=== PATIENT | female | born 1960 | race Two or more races ===

== ENCOUNTER 2024-07-29 07:49 | Outpatient (OUT) | payer BC, SELFPAY ==
--- OUTSIDE RECORDS SUMMARY | 2024-07-28 14:45 | XMS_ITS | Encounter Summary ---
Author Organization [facility] Address [facility] [id number] [address] [place] [address] Care Team Providers Care Skin Care Therapist Name Role Phone Yosi Lan MD Primary Care Provider Reason for Visit * Reason Comments Follow-up [facility] 04/10/2023 Coronary Artery Disease Palpitations Hypertension Shortness of Breath WITHOUT EXERTION Encounter Details Date Type Department Care Team (Late st Contact Info) Description 07/28/2024 2:45 PM EDT Office Visit [facility] [address] [place] [id number] Nora Henderson PA-C [address] [place] [address] Vee Dooley MD [address] [place] [address] Palpitations (Primary Dx); Essential hypertension Social History Tobacco Use Types Packs/Day Years Used Date Smoking Tobacco: Never Smokeless Tobacco: Never Alcohol Use Standard Drinks/Week Comments No 0 (1 standard drink = 0.6 oz pur e alcohol) Social Connection and Isolat ion Panel [NHANES] Answer Date Recorded In a typical week, how many times do you talk on the phone with family, friends, or neighbors? Three times a week 05/04/2021 How often do you get togethe r with friends or relatives? Once a week 05/04/2021 How often do you attend chur or muslim services? More than 4 times per year 05/04/2021 Do you belong to any clubs o r organizations such as scientologist groups, unions, fraternal or athletic groups, or school groups? Yes 05/04/2021 How often do you attend meet ings of the clubs or organizations you belong to? More than 4 times per year 05/04/2021 Are you , , di vorced, , never , or living with a partner? 05/04/2021 AUDIT-C Answer Date Recorded Q1: How often do you have a drink containing alcohol? Never 05/04/2021 Q2: How many drinks containi ng alcohol do you have on a typical day when you are drinking? Patient does not drink Q3: How often do you have si x or more drinks on one occasion? Never 05/04/2021 Overall Financial Resource Strain (CARDIA) Answe r Date Recorded How hard is it for you to pa y for the very basics like food, housing, medical care, and heating? Not very hard 05/04/2021 PHQ-2 Answer Date Recorded Total Score 0 06/03/2023 [facility] - Occupational Stress Questionnaire Answer Date Recorded Do you feel stress - tense, restless, nervous, or anxious, or unable to sleep at night because your mind is troubled all the time - these days? Not at all 05/04/2021 Exercise Vital Sign Answer Date Recorde d Days of Exercise per Week Not on file 2021 On average, how many minutes do you engage in exercise at this level? 20 min 05/04/2021 PRAPARE - Transportation Answer Date Re corded In the past 12 months, has l ack of transportation kept you from medical appointments or from getting medications? No 04/17 In the past 12 months, has l ack of transportation kept you from meetings, work, or from getting things needed for daily living? No 05/04/2021 Childcare Answer Date Recorded Do problems getting child ca re make it difficult for you to work or study? No 05/04/2021 Employment Answer Date Recorded Do you need help finding a [facility] career center and/or a training program? No 05/04/2021 Hunger Screening Answer Date Recorded Within the past 12 months we worried whether our food would run out before we got money to buy more. Never True 07/28/2024 Within the past 12 months th e food we bought just didn't last and we didn't have money to get more. Never True 07/28/2024 Purpose - Life Answer Date Recorded I have a purpose and direction in my life. Agree 05/04/2021 Education Answer Date Recorded What is the highest level of school you have completed or the highest degree you have received? Associate degree: academic program 05/04/2021 Comments No Sex and Gender Information Value Date Recorded Sex Assigned at Female 12/26/2020 2:29 PM EST Legal Sex Female 11:25 AM EDT Gender Identity Female 12/26/2020 2:29 PM EST Sexual Orientation Straight 12/26/2020 2: 29 PM EST documented as of this encounter Last Filed Vital Signs Vital Sign Reading Time Taken Comments Blood Pressure 134/70 07/28/2024 2:30 PM EDT Pulse 57 07/28/2024 2:30 PM EDT Temperature - - Respiratory Rate - - Oxygen Saturation 97% 07/28/2024 2:30 PM EDT Inhaled Oxygen Concentration - - Weight 75.3 kg (166 lb) 07/28/2024 2:30 PM EDT Height 162.6 cm (5' 4 ) 07/28/2024 2:30 PM EDT Body Mass Index 28.49 07/28/2024 2:30 PM EDT documented in this encounter Progress Notes * Vee Dooley MD - 07/28/2024 2:45 PM EDT Latasha Pettit Mona Date of visit: 07/28/2024 Date of : 1960 Age: 63 y.o. Patient Active Problem List Diagnosis Essential hypertension Pure hypercholesterolemia CAD (coronary artery disease) Hypothyroidism Mastocytosis Depression Allergies Allergen Reactions Codeine Penicillins Sulfa (Sulfonamide Antibiotics) Tetracyclines Current Outpatient Medications Medication Sig Dispense Refill AMBULATORY COMPOUNDED MEDICATION Patient to take one tablet daily 90 tablet 3 amLODIPine (NORVASC) 10 mg tablet TAKE 1 TABLET BY MOUTH EVERY MORNING 90 tablet 0 aspirin 81 mg chewable tablet Chew 1 tablet (81 mg total) and swallow in the morning. 90 tablet 2 atorvastatin (LIPITOR) 40 mg tablet TAKE 1 TABLET BY MOUTH EVERY MORNING 90 tablet 0 cetirizine (ZyrTEC) 10 mg tablet Take 1 tablet (10 mg total) by mouth in the morning. cholecalciferol, vitamin D3, 2,000 units tablet [id number] UNITS DAILY FLUoxetine (PROzac) 10 mg tablet Take 0.5 tablets (5 mg total) by mouth every morning. 135 tablet 0 glucosamine-chondroitin 500-400 mg tablet Take 1 tablet by mouth in the evening. ketotifen (ZADITOR) 0.025 % (0.035 %) ophthalmic solution ketotifen 0.025 % (0.035 %) eye drops INSTILL 1 DROP INTO AFFECTED EYE(S) BY OPHTHALMIC ROUTE 2 TIMES PER DAY ketotifen fumarate, bulk, 100 % powder [id number] 1,836-425-66-80 mg capsule Take 1,000 mg by mouth once. levothyroxine (SYNTHROID, LEVOTHROID) 125 MCG tablet Take 1 tablet (125 mcg total) by mouth in the morning. 90 tablet 3 montelukast (SINGULAIR) 10 mg tablet take one tablet by mouth every night 90 tablet 3 multivitamin capsule Take 1 capsule by mouth in the morning. ALIVE . nebivoloL (BYSTOLIC) 10 mg tablet Take 1 tablet (10 mg total) by mouth in the morning. 90 tablet 0 pantoprazole (PROTONIX) 20 mg EC tablet take one tablet by mouth every day 90 tablet 3 No current facility-administered medications for this visit. Chief Complaint Patient presents with Follow-up [facility] 04/10/2023 Coronary Artery Disease Palpitations Hypertension History of Present Illness 63-year-old female here in follow-up. She is accompanied with her . She does have medical history of coronary artery disease. Her blood pressure is slightly above goal in the office but reports home logs higher in the 140 mm Hg. She tells me that she has not been checking it in a long time. She is frustrated with her recentweight gain she tells me that she put on about 20 lb and she feels tired and low energy she is still working full- time however. She is not very active but she walks fairly regularly without limitations Past Medical History: Diagnosis Date Anxiety Asthma Depression Hypothyroidism Mastocytosis No data recorded No data recorded No data recorded Past Surgical History: Procedure Laterality Date BREAST BIOPSY Right 1997 NIPPLE, no visible scar Coronary angiogram and left ventricular gram/pressure N/A 04/07/2017 Performed by Romulo Sanders MD at [facility] OTHER SURGICAL HISTORY left foot Stent bare metal left anterior descending N/A 04/10/2017 Performed by Tylor Holman MD at [facility] Family History Problem Relation Age of Onset Hypertension Mother Heart attack Mother Heart attack Father Cirrhosis Father Breast cancer Sister 59 BRCA negative Heart attack Sister Ovarian cancer Maternal Grandmother at age 74 from ovarian cancer Breast cancer Half Sister 53 Drake Breast Cancer Neg Hx Social History Socioeconomic History Marital status: Spouse name: Not on file Number of children: Not on file Years of education: Not on file Highest education level: Associate degree: academic program Occupational History Not on file Tobacco Use Smoking status: Never Smokeless tobacco: Never Vaping Use Vaping status: Never Used Substance and Sexual Activity Alcohol use: No Drug use: No Sexual activity: Defer Other Topics Concern Caffeine Use Yes Social History Narrative Not on file Social Drivers of Health Financial Resource Strain: Low Risk (05/04/2021) Overall Financial Resource Strain (CARDIA) Difficulty of Paying Living Expenses: Not very hard Food Insecurity: No Food Insecurity (06/03/2023) Hunger Screening Food Insecurity - Worry: Never True Food Insecurity - Inability: Never True Transportation Needs: No Transportation Needs (05/04/2021) PRAPARE - Transportation Lack of Transportation (Medical): No Lack of Transportation (Non-Medical): No Physical Activity: Unknown (05/04/2021) Exercise Vital Sign Days of Exercise per Week: Not on file Minutes of Exercise per Session: 20 min Stress: No Stress Concern Present (05/04/2021) [facility] [place] [facility] - Occupational Stress Questionnaire Feeling of Stress : Not at all Social Connections: Socially Integrated (05/04/2021) Social Connection and Isolation Panel [NHANES] Frequency of Communication with Friends and Family: Three times a week Frequency of Social Gatherings with Friends and Family: Once a week Attends Cheondoism Services: More than 4 times per year Active Member of Clubs or Organizations: Yes Attends Club or Organization Meetings: More than 4 times per year Marital Status: Interpersonal Safety: Not At Risk (05/04/2021) Humiliation, Afraid, Rape, and Kick questionnaire Fear of Current or Ex-Partner: No Emotionally Abused: No Physically Abused: No Sexually Abused: No Housing Instability: Not on file Review of Systems Review of Systems Constitutional: Positive for malaise/fatigue. HENT: Negative. Eyes: Negative. Respiratory: Positive for shortness of breath. Hematologic/Lymphatic: Negative. Skin: Negative. Musculoskeletal: Positive for arthritis and joint pain. Gastrointestinal: Negative. Neurological: Negative. Psychiatric/Behavioral: Positive for depression. Allergic/Immunologic: Positive for environmental allergies. CARDIOVASCULAR: Please review HPI. Physical Examination General appearance: Alert, oriented and cooperative. In no acute distress. Skin: Warm and dry to touch. Head: Normocephalic, without obvious abnormality, atraumatic. Ears, Nose, Mouth, Throat: Throat clear without erythema or exudate. Dentition intact. Eyes: Conjunctivae unremarkable, EOM intact. Neck: No JVD, No carotid bruit. Neck supple, trachea midline. Respiratory: Clear to auscultation bilaterally, no use of accessory muscles. Cardiovascular: RRR with normal S1 and S2 with no murmurs. Gastrointestinal: Soft, non-tender. Bowel sounds normal. Musculoskeletal: No peripheral edema. Neurologic: Oriented to time, person and place, affect appropriate. No focal/major motor defects noted. Psychiatric: Appropriate mood, memory and judgement. VITAL SIGNS: Ht 162.6 cm (5' 4 ) LMP 04/07/2017 (Exact Date) BMI 27.12 kg/m?? No orders of the defined types were placed in this encounter. There are no discontinued medications. IMPRESSIONS/PLAN 1. Essential hypertension - POCT EKG 2. Palpitations - POCT EKG CAD BMS to mid LAD in 2017 Essential hypertesion Family history of CAD Normal LVEF 2021 TTE Rare palpitations Mastocytosis ASA with hives reactions, required desensitization Intolerance to thiazide, reported GI side effects -- Reported home logs are above goal patient reluctant to add another antihypertensive agent. She would like to check it at home adjust her diet and potentially loose weight. She does have upcoming appointment with her primary care physician. I would switch her Bystolic to Coreg since she does not want another agent to start if still uncontrolled I would add ARB I did encourage increasing physical activity Otherwise stable from cardiovascular standpoint and can follow-up in a year or sooner if any issuesarise - VEE DOOLEY MD 07/28/24 2:54 PM TODAYS ORDERS Orders Placed This Encounter Procedures POCT EKG FOLLOW UP No follow-ups on file. PCP: Yosi Lan MD Referring Physician: Yosi Lan MD [address] [place] [address], [address] [place] [id number] documented in this encounter Plan of Treatment Not on file documented as of this encounter Procedures Procedure Name Priority Date/Time Associated Diagnosis Comments POCT EKG Routine 07/28/2024 Essential hypertension Palpitations documented in this encounter Results * POCT EKG (07/28/2024) 07/28/2024 us Vee Dooley MD ECG ORDERABLES Final Result MANUALLY TRANSCRIBED RESULTS documented in this encounter Visit Diagnoses Diagnosis Palpitations- Primary Essential hypertension Unspecified essential hypertension documented in this encounter Additional Health Concerns Assessment Noted Time PHQ-9 Depression Total Score: 0 06/03/19 24 9:08 AM EDT documented as of this encounter Care Teams Skin Care Therapist Relationship Specialty Start Date End Date Yosi Lan MD [address] [place] [address], [place] [address] PCP - General Pediatrics 12/30/16 documented as of this encounter
--- OUTSIDE RECORDS SUMMARY | 2024-07-29 07:56 | XMS_ITS | Encounter Summary ---
Author Organization [employer] Address [facility] [id number] [address] [place] [address] Care Team Providers Care Online Marketing Director Name Role Phone Yosi Lan MD Primary Care Provider [phone] Reason for Visit * Reason Comments Med Refill Encounter Details Date Type Department Care Team (Late st Contact Info) Description 11/15/2023 Refill [facility] Internal Medicine/Pediatrics [address] [place] [address] 1 [place] [phone] Yosi Lan MD [address] [place] [address], [address] [place], [place] [id number] Coronary artery disease involving [place] coronary artery of [place] heart without angina pectoris; Essential hypertension; Palpitations; Pure hypercholesterolemia Social History Tobacco Use Types Packs/Day Years [...] 05/04/2021 How often do you attend chur ch or faith services? More than 4 times per year 05/04/2021 Do you belong to any clubs o r organizations such as yarsanism groups, unions, fraternal or athletic groups, or [...] Answer Date Recorded Total Score 0 06/03/2023 [facility] ional [facility] - Occupational Stress Questionnaire Answer Date Recorded [...] Recorded Do you need help finding a [facility] career [facility] and/or a training program? No 05/04/2021 Hunger Screening Answer Date Recorded Within the past 12 months we worried whether our food would run out before we got money to buy more. Never True 06/03/2023 Within the past 12 months th e food we bought just didn't last and we didn't have money to get more. Never True 06/03/2023 Purpose - Life Answer Date Recorded I [...] PM EST documented as of this encounter Miscellaneous Notes * Telephone Encounter - Jyothi Berrios CMA - 11/15/2023 6:56 PM EDT This prescription is filled by her cleaner and polisher documented in this encounter Plan of Treatment Not on file documented as of this encounter Visit Diagnoses Diagnosis Coronary artery disease involving [place] coronary artery of [place] heart without angina pectoris Essential hypertension Unspecified essential hypertension Palpitations Pure hypercholesterolemia documented in this encounter Additional Health Concerns Assessment Noted Time PHQ-9 Depression Total Score: 0 06/03/19 24 9:08 AM EDT documented as of this encounter Care Teams Online Marketing Director Relationship Specialty Start Date End Date Yosi Lan MD [address] [place] [address], 1 [place] [address] PCP - General Pediatrics 12/30/16 documented as of this encounter
--- OUTSIDE RECORDS SUMMARY | 2024-07-29 07:56 | XMS_ITS | Encounter Summary ---
Author Organization [employer] Address [id number] [address] [place] [address] Care Team Providers Care Gamma Facilities Operator Name Role Phone Yosi Lan MD Primary Care Provider [phone] Reason for Visit * Reason Comments Med Refill Encounter Details Date Type Department Care Team (Late st Contact Info) Description 12/09/2022 Refill [facility] Medicine/Pediatrics [address] [place] [address] 1 [place] [phone] Yosi Lan MD [address] [place] [address], [address] [place], [place] [id number] Social History Tobacco Use Types Packs/Day Years [...] often do you attend chur ch or baptist services? More than 4 times per year 05/04/2021 Do you belong to any clubs o r organizations such as gnosticism groups, unions, fraternal or athletic groups, or [...] PHQ-2 Answer Date Recorded Total Score 0 05/31/2022 [facility]at ional Health - Occupational Stress [...] Do you need help finding a [facility] career [facility] and/or a training program? No 05/04/2021 Hunger Screening Answer Date Recorded Within the past 12 months we worried whether our food would run out before we got money to buy more. Never True 05/31/2022 Within the past 12 months th e food we bought just didn't last and we didn't have money to get more. Never True 05/31/2022 Purpose - Life Answer Date Recorded I [...] Telephone Encounter - Jyothi Berrios CMA - 12/09/2022 12:01 PM EDT Not our script documented in this encounter Plan of Treatment Not on file documented as of this encounter Visit Diagnoses Not on filedocumented in this encounter Additional Health Concerns Assessment Noted Time PHQ-9 Depression Total Score: 0 06/01/19 8:45 AM EDT documented as of this encounter Care Teams Gamma Facilities Operator Relationship Specialty Start Date End Date Yosi Lan MD [address] [place] [address], 1 [place] [address] PCP - General Pediatrics 12/30/16 documented as of this encounter
--- OUTSIDE RECORDS SUMMARY | 2024-07-29 07:56 | XMS_ITS | Encounter Summary ---
Author Organization [employer] Address [facility] [id number] [address] [place] [address] Care Team Providers Care Aerial Planting And Cultivation Manager Name Role Phone Yosi Lan MD Primary Care Provider [phone] Reason for Visit * Reason Comments Med Refill Encounter Details Date Type Department Care Team (Late st Contact Info) Description 03/07/2022 Refill [facility] Medicine/Pediatrics [address] [place] [address] 1 [place] [phone] Yosi Lan MD [address] [place] [address], [address] [place], [place] [phone] Social History Tobacco Use Types Packs/Day Years [...] often do you attend chur ch or spiritism services? More than 4 times per year [...] 05/04/2021 PHQ-2 Answer Date Recorded Total Score 5 05/04/2021 [facility] Occupat ional Health - [...] Recorded Do you need help finding a l ocal career center and/or a training program? No 05/04/2021 Purpose - Life Answer Date Recorded I [...] Telephone Encounter - Jyothi Berrios CMA - 03/07/2022 7:31 PM EST Not due until May documented in this encounter Plan of Treatment Not on file documented as of this encounter Visit Diagnoses Not on filedocumented in this encounter Additional Health Concerns Assessment Noted Time PHQ-9 Depression Total Score: 5 05/05/19 22 9:16 AM EDT documented as of this encounter Care Teams Aerial Planting And Cultivation Manager Relationship Specialty Start Date End Date Yosi Lan MD [address] [place] [address], 1 [place] [address] PCP - General Pediatrics 12/30/16 documented as of this encounter
--- OUTSIDE RECORDS SUMMARY | 2024-07-29 07:56 | XMS_ITS | Encounter Summary ---
Author Organization [employer] Address [facility] [id number] [address] [place] [address] Care Team Providers Care Music Sound Light Technician Name Role Phone Yosi Lan MD Primary Care Provider [phone] Reason for Visit * Reason Comments Med Refill Encounter Details Date Type Department Care Team (Late st Contact Info) Description 07/23/2024 Refill [facility] [address] [place] [phone] Carolann Gonzalez, PROCESSING ANALYST-SLIVER LAP TENDER [address] [place] [address] Med Refill Social History Tobacco Use Types Packs/Day Years [...] often do you attend chur ch or pentecostalism services? More than 4 times per year 05/04/2021 Do you belong to any clubs o r organizations such as druze groups, unions, fraternal or athletic groups, or [...] Answer Date Recorded Total Score 0 06/03/2023 [facility] Occupat ional Health - Occupational [...] Recorded Do you need help finding a [facility] and/or a training program? No [...] encounter Miscellaneous Notes * Telephone Encounter - Ama Kuhn RN - 07/23/2024 3:34 AM EDT Will fill at 07/27/24 [facility] appt if appropriate. documented in this encounter Plan of Treatment Not on file documented as of this encounter Visit Diagnoses Diagnosis Palpitations Pure hypercholesterolemia Coronary artery disease involving [place] coronary artery of [place] heart without angina pectoris Essential hypertension Unspecified essential hypertension Hyperlipidemia, unspecified hyperlipidemia type documented in this encounter Additional Health Concerns Assessment Noted Time PHQ-9 Depression Total Score: 0 06/03/19 24 9:08 AM EDT documented as of this encounter Care Teams Music Sound Light Technician Relationship Specialty Start Date End Date Yosi Lan MD [address] [place] [address], 1 [place] [address] PCP - General Pediatrics 12/30/16 documented as of this encounter
--- OUTSIDE RECORDS SUMMARY | 2024-07-29 07:56 | XMS_ITS | Encounter Summary ---
Author Organization [facility] [facility] [employer] Address [facility] [id number] [address] [place] [address] Care Team Providers Care Director Of Labor And Delivery Name Role Phone Yosi Lan MD Primary Care Provider [phone] Reason for Visit * Reason Onset Date Comments Med Refill 04/09/2021 Encounter Details Date Type Department Care Team (Late st Contact Info) Description 04/09/2021 Refill [facility] [address] [place] [phone] Alejandra Pimentel RN Med Refill Social History Tobacco Use Types Packs/Day Years Used Date Smoking Tobacco: Never Smokeless Tobacco: Never Alcohol Use Standard Drinks/Week Comments No 0 (1 standard drink = 0.6 oz pur e alcohol) AUDIT-C Answer Date Recorded Frequency of Alcohol Consumption Never 05/02/2020 Average Number of Drinks Not on file 021 Frequency of Binge Drinking Not on file 04/17 PHQ-2 Answer Date Recorded Total Score 1 05/03/2020 Childcare Answer Date Recorded Childcare Unknown 07/29/2018 Employment Answer Date Recorded Employment Unknown 07/29/2018 Purpose - Life Answer Date Recorded Purpose and direction in life Unknown Comments No Sex and Gender Information Value Date Recorded Sex Assigned at Female 12/26/2020 2:29 PM EST Legal Sex Female 11:25 AM EDT Gender Identity Female 12/26/2020 2:29 PM EST Sexual Orientation Straight 12/26/2020 2: 29 PM EST documented as of this encounter Plan of Treatment Not on file documented as of this encounter Visit Diagnoses Diagnosis Coronary artery disease involving [place] coronary artery of [place] heart without angina pectoris- Primary Encounter for therapeutic drug monitoring documented in this encounter Additional Health Concerns Assessment Noted Time PHQ-9 Depression Total Score: 1 05/04/19 21 8:47 AM EDT documented as of this encounter Care Teams Director Of Labor And Delivery Relationship Specialty Start Date End Date Yosi Lan MD [address] [place] [address], 1 [place] [address] PCP - General Pediatrics 12/30/16 documented as of this encounter
--- OUTSIDE RECORDS SUMMARY | 2024-07-29 07:56 | XMS_ITS | Encounter Summary ---
Author Organization [employer] Address [facility] [id number] [address] [place] [address] Care Team Providers Care Changer Fixer Name Role Phone Yosi Lan MD Primary Care Provider [phone] Reason for Visit * Reason Comments Med Refill Encounter Details Date Type Department Care Team (Late st Contact Info) Description 04/28/2021 Refill [facility] Internal Medicine[facility]Pediatrics [address] [place] [address] 1 [place] [phone] Yosi Lan MD [address] [place] [address], 1 [place], [place] [phone] Social History Tobacco Use Types Packs/Day Years [...] documented as of this encounter Care Teams Changer Fixer Relationship Specialty Start Date End Date Yosi Lan MD [address] [place] [address], 1 [place] [address] PCP - General Pediatrics 12/30/16 documented as of this encounter
--- OUTSIDE RECORDS SUMMARY | 2024-07-29 07:56 | XMS_ITS | Encounter Summary ---
Author Organization [employer] Address [facility] [place]-[id number] [address] [place] [address] Care Team Providers Care Herbicide Sprayer Name Role Phone Yosi Lan MD Primary Care Provider [phone] Reason for Visit * Reason Comments Med Refill Encounter Details Date Type Department Care Team (Late st Contact Info) Description 04/08/2022 Refill [facility] Internal Medicine/P[facility]s [address] [place] [address] 1 [place] [phone] Yosi Lan MD [address] [place] [address], [address] [place], [place] [id number] Social History Tobacco Use Types Packs/Day Years [...] often do you attend chur ch or adventist services? More than 4 times per year 05/04/2021 Do you belong to any clubs o r organizations such as jehovah's witness groups, unions, fraternal or athletic groups, or [...] Answer Date Recorded Total Score 5 05/04/2021 [facility] of Occupat ional Health - Occupational Stress [...] Telephone Encounter - Jyothi Berrios CMA - 04/08/2022 1:17 PM EST Not due for refills until May 2022 documented in this encounter Plan of Treatment Not on file documented as of this encounter Visit Diagnoses Not on filedocumented in this encounter Additional Health Concerns Assessment Noted Time PHQ-9 Depression Total Score: 5 05/05/19 22 9:16 AM EDT documented as of this encounter Care Teams Herbicide Sprayer Relationship Specialty Start Date End Date Yosi Lan MD [address] [place] [address], 1 [place] [address] PCP - General Pediatrics 12/30/16 documented as of this encounter
--- OUTSIDE RECORDS SUMMARY | 2024-07-29 07:56 | XMS_ITS | Encounter Summary ---
Author Organization [employer] Address [facility] [place]-[id number] [address] [place] [address] Care Team Providers Care Employment Programs Analyst Name Role Phone Yosi Lan MD Primary Care Provider [phone] Reason for Visit * Reason Comments Med Refill Encounter Details Date Type Department Care Team (Late st Contact Info) Description 10/22/2023 Refill [facility] Internal Medicine/Pediatrics [address] [place] [address] 1 [place] [phone] Yosi Lan MD [address] [place] [address], 1 [place], [place] [phone] Coronary artery disease involving kashia coronary artery of kashia heart without angina pectoris; Essential hypertension; Palpitations; [...] often do you attend chur ch or mandaeism services? More than 4 times per year 05/04/2021 Do you belong to any clubs o r organizations such as sikhism groups, unions, fraternal or athletic groups, or [...] Answer Date Recorded Total Score 0 06/03/2023 [facility] of Occupat ional [facility] - Occupational Stress Questionnaire Answer Date Recorded [...] Recorded Do you need help finding a [facility] career center and/or a training program? [...] Telephone Encounter - Jyothi Berrios CMA - 10/22/2023 10:59 AM EDT Cardiology refills this medication documented in this encounter Plan of Treatment Not on file documented as of this encounter Visit Diagnoses Diagnosis Coronary artery disease involving kashia coronary artery of kashia heart without angina pectoris Essential hypertension Unspecified essential hypertension Palpitations Pure hypercholesterolemia documented in this encounter Additional Health Concerns Assessment Noted Time PHQ-9 Depression Total Score: 0 06/03/19 24 9:08 AM EDT documented as of this encounter Care Teams Employment Programs Analyst Relationship Specialty Start Date End Date Yosi Lan MD [address] [place] [address], [place] [address] PCP - General Pediatrics 12/30/16 documented as of this encounter
--- OUTSIDE RECORDS SUMMARY | 2024-07-29 07:56 | XMS_ITS | Encounter Summary ---
Author Organization [facility] Address [facility] [place][id number] [address] [place] [address] Care Team Providers Care Loader Name Role Phone Yosi Lan MD Primary Care Provider [phone] Reason for Visit * Reason Onset Date Comments Medication Problem 03/31/2020 Encounter Details Date Type Department Care Team (Late st Contact Info) Description 03/31/2020 Telephone [facility] Internal Medicine/Pediatrics [address] [place] [phone] Jyothi Berrios CMA Medication Problem Social History Tobacco Use Types Packs/Day Years Used Date Smoking Tobacco: Never Smokeless Tobacco: Never Alcohol Use Standard Drinks/Week Comments No 0 (1 standard drink = 0.6 oz pur e alcohol) AUDIT-C Answer Date Recorded Frequency of Alcohol Consumption Never 04/01/2019 Average Number of Drinks Not on file 020 Frequency of Binge Drinking Not on file 03/20 Childcare Answer Date Recorded Childcare Unknown 07/29/2018 [...] Orientation Straight 12/26/2020 2: 29 PM EST COVID-19 Exposure Response Date Recorded In the last month, have you been in contact with someone who was confirmed or suspected to have Coronavirus / COVID-19? No / Unsure 04/03/2020 8:28 AM EST documented as of this encounter Miscellaneous Notes * Telephone Encounter - Jyothi Berrios CMA - 03/31/2020 11:31 AM EST Pt called and asked if you could look at her thyroid labs. She has been feeling tired lately, she has an appointment 05-03-20 and didn't know if you wanted her to wait until then and get labs or increase her thyroid before that. Jyothi Berrios CMA 03/31/20 1137 * Telephone Encounter - Yosi Lan MD - 03/31/2020 11:31 AM EST Thyroid functions ordered. documented in this encounter Plan of Treatment Not on file documented as of this encounter Visit Diagnoses Not on filedocumented in this encounter Care Teams Loader Relationship Specialty Start Date End Date Yosi Lan MD [address] [place] [address], [address] [place] [address] PCP - General Pediatrics 12/30/16 documented as of this encounter
--- OUTSIDE RECORDS SUMMARY | 2024-07-29 07:56 | XMS_ITS | Encounter Summary ---
Author Organization [facility] [facility] tem Address [facility] [id number] [address] [place] [address] Care Team Providers Care Blower Feeder Dyed Raw Stock Name Role Phone Yosi Lan MD Primary Care Provider [phone] Encounter Details Date Type Department Care Team (Latest Contact Info) Description 07/28/2024 Travel Social History Tobacco Use Types Packs/Day Years [...] How often do you attend chur or confucianism services? More than 4 times per year 05/04/2021 Do you belong to any clubs o r organizations such as islam groups, unions, fraternal or athletic groups, or [...] Answer Date Recorded Total Score 0 06/03/2023 [facility] of Occupat ional Health - Occupational [...] Recorded Do you need help finding a [facility] career center and/or a training program? [...] documented as of this encounter Care Teams Blower Feeder Dyed Raw Stock Relationship Specialty Start Date End Date Yosi Lan MD [address] [place] [address], 1 [place] [address] PCP - General Pediatrics 12/30/16 documented as of this encounter
--- OUTSIDE RECORDS SUMMARY | 2024-07-29 07:56 | XMS_ITS | Encounter Summary ---
Author Organization [employer] Address [facility] [place]-[id number] [address] [place] [address] Care Team Providers Care President Practicing Urologist Name Role Phone Yosi Lan MD Primary Care Provider [phone] Reason for Visit * Reason Comments Med Refill Encounter Details Date Type Department Care Team (Late st Contact Info) Description 05/19/2022 Refill [facility] Internal Medicine/Pediatrics [address] [place] [address] 1 [place] [phone] Yosi Lan MD [address] [place] [address], [address] [place], [place] [phone] Social History Tobacco Use Types Packs/Day Years [...] often do you attend chur ch or restorationism services? More than 4 times per year 05/04/2021 Do you belong to any clubs o r organizations such as judaism groups, unions, fraternal or athletic groups, or [...] Answer Date Recorded Total Score 5 05/04/2021 [facility] of Occupat ional Health [...] Telephone Encounter - Jyothi Berrios CMA - 05/19/2022 11:08 PM EDT Too soon to refill documented in this encounter Plan of Treatment Not on file documented as of this encounter Visit Diagnoses Not on filedocumented in this encounter Additional Health Concerns Assessment Noted Time PHQ-9 Depression Total Score: 5 05/05/19 22 9:16 AM EDT documented as of this encounter Care Teams President Practicing Urologist Relationship Specialty Start Date End Date Yosi Lan MD [address] [place] [address], [address] [place] [address] PCP - General Pediatrics 12/30/16 documented as of this encounter
--- OUTSIDE RECORDS SUMMARY | 2024-07-29 07:56 | XMS_ITS | Encounter Summary ---
Author Organization [employer] tem Address [facility] [id number] [address] [place] [address] Care Team Providers Care Doormaker Name Role Phone Yosi Lan MD Primary Care Provider [phone] Encounter Details Date Type Department Care Team (Late st Contact Info) Description 03/23/2019 Telephone [facility] Cardiology [address] [place] [phone] Gabbie Zavala MA Social History Tobacco Use Types Packs/Day Years Used Date Smoking Tobacco: Never Smokeless Tobacco: Never Alcohol Use Standard Drinks/Week Comments No 0 (1 standard drink = 0.6 oz pur e alcohol) AUDIT-C Answer Date Recorded Frequency of Alcohol Consumption Never 02/11/2018 Average Number of Drinks Not on file 018 Frequency of Binge Drinking Not on file 01/18 Childcare Answer Date Recorded Childcare Unknown 07/29/2018 Employment Answer Date Recorded Employment Unknown 07/29/2018 Comments No Sex and Gender Information Value [...] on filedocumented in this encounter Care Teams Doormaker Relationship Specialty Start Date End Date Yosi Lan MD [address] [place] [address], [address] [place] [id number] PCP - General Pediatrics 12/30/16 documented as of this encounter
--- OUTSIDE RECORDS SUMMARY | 2024-07-29 07:57 | XMS_ITS | Encounter Summary ---
Author Organization [employer] Address [facility] [id number] [address] [place] [address] Care Team Providers Care Jazz Musician Name Role Phone Yosi Lan MD Primary Care Provider [phone] Reason for Visit * Reason Comments Med Refill Encounter Details Date Type Department Care Team (Late st Contact Info) Description 06/21/2022 Refill [facility] Internal Medicine/Pediatrics [address] [place] [address] 1 [place] [phone] Yosi Lan MD [address] [place] [address], [address] [place], [place] [phone] Social History Tobacco Use Types Packs/Day Years [...] often do you attend chur ch or episcopal services? More than 4 times per year 05/04/2021 Do you belong to any clubs o r organizations such as uatsdin groups, unions, fraternal or athletic groups, or [...] Answer Date Recorded Total Score 0 05/31/2022 [facility] of Occupat ional Health - Occupational Stress [...] Recorded Do you need help finding a [facility] career [facility] and/or a training program? [...] Telephone Encounter - Jyothi Berrios CMA - 06/21/2022 11:52 AM EDT Too soon to refill documented in this encounter Plan of Treatment Not on file documented as of this encounter Visit Diagnoses Not on filedocumented in this encounter Additional Health Concerns Assessment Noted Time PHQ-9 Depression Total Score: 0 06/01/19 23 8:45 AM EDT documented as of this encounter Care Teams Jazz Musician Relationship Specialty Start Date End Date Yosi Lan MD [address] [place] [address], 1 [place] [address] PCP - General Pediatrics 12/30/16 documented as of this encounter
--- OUTSIDE RECORDS SUMMARY | 2024-07-29 07:57 | XMS_ITS | Encounter Summary ---
Author Organization [facility] Address [facility] [place]-[id number] [address] [place] [address] Care Team Providers Care Plater Printed Circuit Board Panels Name Role Phone Yosi Lan MD Primary Care Provider [phone] Reason for Visit * Reason Onset Date Comments Med Refill 02/24/2023 Encounter Details Date Type Department Care Team (Late st Contact Info) Description 02/24/2023 Refill [facility] Internal Medicine/Pediatrics [address] [place] [address] 1 [place] [phone] Yosi Lan MD [address] [place] [address], 1 [place], [place] [phone] Social History Tobacco Use Types Packs/Day Years [...] often do you attend chur ch or jehovah's witness services? More than 4 times per year 05/04/2021 Do you belong to any clubs o r organizations such as tenriism groups, unions, fraternal or athletic groups, or [...] Answer Date Recorded Total Score 0 05/31/2022 [facility] [place] of Occupat ional Health - Occupational Stress [...] Recorded Do you need help finding a [facility] career [facility] and/or a training program? [...] Telephone Encounter - Jyothi Berrios CMA - 02/24/2023 11:36 AM EST Patient needs to call the office for refills documented in this encounter Plan of Treatment Not on file documented as of this encounter Visit Diagnoses Not on filedocumented in this encounter Additional Health Concerns Assessment Noted Time PHQ-9 Depression Total Score: 0 06/01/19 23 8:45 AM EDT documented as of this encounter Care Teams Plater Printed Circuit Board Panels Relationship Specialty Start Date End Date Yosi Lan MD [address] [place] [address], 1 [place] [address] PCP - General Pediatrics 12/30/16 documented as of this encounter
--- OUTSIDE RECORDS SUMMARY | 2024-07-29 07:57 | XMS_ITS | Encounter Summary ---
Author Organization [employer] tem Address [facility] [place]-[id number] [address] [place] [address] Care Team Providers Care Crusher Assembler Name Role Phone Yosi Lan MD Primary Care Provider [phone] Reason for Visit * Reason Comments Med Refill Encounter Details Date Type Department Care Team (Late st Contact Info) Description 10/21/2023 Refill [facility] Internal Medicine/Pediatrics [address] [place] [address] 1 [place] [phone] Yosi Lan MD [address] [place] [address], 1 [place], [place] [phone] Coronary artery disease involving anvik coronary artery of anvik heart without angina pectoris; Essential hypertension; Palpitations; [...] often do you attend chur ch or orthodox services? More than 4 times per year 05/04/2021 Do you belong to any clubs o r organizations such as bahai groups, unions, fraternal or athletic groups, or [...] Answer Date Recorded Total Score 0 06/03/2023 [facility] of Occupat ional [facility] - Occupational Stress Questionnaire Answer Date [...] Recorded Do you need help finding a [facility] career [facility] and/or a training program? [...] Telephone Encounter - Jyothi Berrios CMA - 10/21/2023 9:47 PM EDT This medication is filled by her General Internal Medicine Physician documented in this encounter Plan of Treatment Not on file documented as of this encounter Visit Diagnoses Diagnosis Coronary artery disease involving anvik coronary artery of anvik heart without angina pectoris Essential hypertension Unspecified essential hypertension Palpitations Pure hypercholesterolemia documented in this encounter Additional Health Concerns Assessment Noted Time PHQ-9 Depression Total Score: 0 06/03/19 24 9:08 AM EDT documented as of this encounter Care Teams Crusher Assembler Relationship Specialty Start Date End Date Yosi Lan MD [address] [place] [address], 1 [place] [address] PCP - General Pediatrics 12/30/16 documented as of this encounter
--- OUTSIDE RECORDS SUMMARY | 2024-07-29 07:57 | XMS_ITS | Encounter Summary ---
Author Organization [employer] Address [facility][id number] [address] [facility] [place] [address] Care Team Providers Care Environmental Planner Name Role Phone Yosi Lan MD Primary Care Provider [phone] Reason for Visit * Reason Comments Med Refill Encounter Details Date Type Department Care Team (Late st Contact Info) Description 03/19/2023 Refill [facility] Cardiology [address] [place] [phone] Carly Arce, COFFEE SOMMELIER-BACK ROLL LATHE OPERATOR [address] [place] [address] Med Refill Social History Tobacco Use Types [...] often do you attend chur ch or holiness services? More than 4 times per year 05/04/2021 Do you belong to any clubs o r organizations such as oriental orthodox groups, unions, fraternal or athletic groups, or [...] Answer Date Recorded Total Score 0 05/31/2022 [facility] of Occupat ional Health - Occupational [...] Recorded Do you need help finding a [facility] career [facility] and/or a training program? No [...] encounter Miscellaneous Notes * Telephone Encounter - Renata Mackey RN - 03/19/2023 7:56 AM EST Script signed and sent to pharmacy 03/18/23 documented in this encounter Plan of Treatment Not on file documented as of this encounter Visit Diagnoses Not on filedocumented in this encounter Additional Health Concerns Assessment Noted Time PHQ-9 Depression Total Score: 0 06/01/19 23 8:45 AM EDT documented as of this encounter Care Teams Environmental Planner Relationship Specialty Start Date End Date Yosi Lan MD [address] [place] [address], [address] [place] [address] PCP - General Pediatrics 12/30/16 documented as of this encounter
--- OUTSIDE RECORDS SUMMARY | 2024-07-29 07:57 | XMS_ITS | Encounter Summary ---
Author Organization [employer] Address [facility] [id number] [address] [place] [address] Care Team Providers Care Business Development Agent Name Role Phone Yosi Lan MD Primary Care Provider [phone] Reason for Visit * Reason Comments Med Refill Encounter Details Date Type Department Care Team (Late st Contact Info) Description 07/08/2022 Refill [facility] Internal Medicine/Pediatrics [address] [place] [address] 1 [place] [phone] Yosi Lan MD [address] [place] [address], [address] [place], [place] [phone] Social History Tobacco Use Types Packs/Day Years [...] often do you attend chur ch or moravian services? More than 4 times per year 05/04/2021 Do you belong to any clubs o r organizations such as lutheran groups, unions, fraternal or athletic groups, or [...] Answer Date Recorded Total Score 0 05/31/2022 [facility] of Occupat ional Health - [...] Recorded Do you need help finding a [facility] career center and/or a training [...] Telephone Encounter - Jyothi Berrios CMA - 07/08/2022 10:09 PM EDT Duplicate, ordered by another doctor documented in this encounter Plan of Treatment Not on file documented as of this encounter Visit Diagnoses Not on filedocumented in this encounter Additional Health Concerns Assessment Noted Time PHQ-9 Depression Total Score: 0 06/01/19 23 8:45 AM EDT documented as of this encounter Care Teams Business Development Agent Relationship Specialty Start Date End Date Yosi Lan MD [address] [place] [address], 1 [place] [address] PCP - General Pediatrics 12/30/16 documented as of this encounter
--- OUTSIDE RECORDS SUMMARY | 2024-07-29 07:57 | XMS_ITS | Encounter Summary ---
Author Organization [facility] tem Address [facility] [place][id number] [address] [place] [address] Care Team Providers Care Shot Lighter Name Role Phone Yosi Lan MD Primary Care Provider [phone] Encounter Details Date Type Department Care Team (Late st Contact Info) Description 06/04/2023 Orders Only [facility]/Pediatrics [address] [place] [phone] Elissa Snyder RMA Routine general medical examination at a health care facility Social History Tobacco Use Types Packs/Day Years [...] often do you attend chur ch or sikh services? More than 4 times per year 05/04/2021 Do you belong to any clubs o r organizations such as mu-ism groups, unions, fraternal or athletic groups, or [...] Answer Date Recorded Total Score 0 06/03/2023 [facility] [place] of Occupat ional Health - Occupational Stress [...] Do you need help finding a l al career center and/or a training program? No [...] Procedure Name Priority Date/Time Associated Diagnosis Comments THYROID PROFILE INCLUDES TSH FT4 Routine 06/03/2023 Routine general medical examination at a [facility] care facility LIPID PROFILE Routine 06/03/2023 Routine general medical examination at a [facility] facility COMPREHENSIVE METABOLIC PANEL Routine 06/03/2023 Routine general medical examination at a [facility] facility documented in this encounter Results * Comprehensive metabolic panel (06/03/2023) Blood 06/03/2023 us Yosi Lan MD LAB BLOOD ORDERABLES Final Re sult Performing Organization Address City/[facility]/ZIP Co de Phone Number [facility] * (ABNORMAL) Lipid panel (06/03/2023) External Cholesterol 127 <=200 [facility] External Cholesterol:Hdl 3.4 <=4.44 [facility] External Hdl Cholesterol 37(A) >=39 [facility] External Ldl (Calc) 63 <=100 [facility] External Triglycerides 135 <=149 [facility] External Very Low Lipoprotein 27 <=30 [facility] Blood 06/03/2023 Yosi Lan MD LAB BLOOD ORDERABLES Final Re sult [facility] * Thyroid profile includes TSH FT4 (06/03/2023) 06/03/2023 us Yosi Lan MD LAB BLOOD ORDERABLES Final Re sult [facility] documented in this encounter Visit Diagnoses Diagnosis Routine general medical examination at a health care facility documented in this encounter Additional Health Concerns Assessment Noted Time PHQ-9 Depression Total Score: 0 06/03/19 24 9:08 AM EDT documented as of this encounter Care Teams Shot Lighter Relationship Specialty Start Date End Date Yosi Lan MD [address] [place] [address], 1 [place] [address] PCP - General Pediatrics 12/30/16 documented as of this encounter
[2024-07-29 09:04] LABS: Chol HDL Ratio 2.9; Cholesterol 117 mg/dL (<=200); HDL Cholesterol 40 mg/dL (40-60); LDL Cholesterol Calculated 58.2 mg/dL; Triglycerides 94 mg/dL (<=150); VLDL CHOLESTEROL 18.8 mg/dL
== END 2024-07-29 07:50 | disposition home or self-care (01) ==
PROVIDERS: PCP Internal Medicine
DX: E78.5 Hyperlipidemia, unspecified (principal)
CPT/HCPCS: 36415; 80061

== ENCOUNTER 2024-08-12 15:52 | Outpatient (OUT) | payer BC, SELFPAY ==
--- NOTE | 2024-08-12 | MM_ITS ---
Patient Name: MARIAELENA DELONG MR#: [id number] : 1960 Exam Date: 08/12/2024 Ordering Doctor: DR AKANKSHA ACOSTA RADIOLOGY REPORT PROCEDURE: MM TOMOSYNTHESIS SCREENING BI COMPARISON: MG MAMM SCREEN TORSTEN W CAD, 07/07/2023. MG MAMM SCREEN 3D TORSTEN CAD, 07/04/2022. MG MAMM SCREEN TORSTEN W CAD, 06/16/2021. INDICATIONS: Screening for malignant neoplasm Calculator Name NCI Breast Cancer Risk Assessment Tool 5 Year Breast Cancer Risk 2.80% Lifetime Breast Cancer Risk 12.50% Personal Breast Cancer No Personal Ovarian Cancer No Treatments None Family Cancers Sister with breast cancer at age 57; Grandmother-maternal with ovarian cancer at age ~70; Brother with colon cancer at age 70. LOCATION: [facility] BREAST COMPOSITION: There are scattered areas of fibroglandular density. FINDINGS: RIGHT BREAST: No significant suspicious finding. Benign-appearing lymph nodes are present . LEFT BREAST: No significant suspicious finding. Benign-appearing lymph nodes are present. DIAGNOSTIC CATEGORY 1--NEGATIVE. RECOMMENDATIONS: ROUTINE MAMMOGRAM AND CLINICAL EVALUATION IN 12 MONTHS. PLEASE NOTE: A NORMAL MAMMOGRAM DOES NOT EXCLUDE THE POSSIBILITY OF BREAST CANCER. A CLINICALLY SUSPICIOUS PALPABLE LUMP SHOULD BE BIOPSIED. Dictated by: Marc Fox MD on 08/12/2024 at 17:03 Approved by: Marc Fox MD on 08/12/2024 at 17:07
== END 2024-08-12 15:53 | disposition home or self-care (01) ==
LOC: MAMMO 15:52
PROVIDERS: PCP Internal Medicine; Visit Provider Internal Medicine
DX: Z12.31 Encounter for screening mammogram for malignant neoplasm of breast (principal); Z80.3 Family history of malignant neoplasm of breast; Z80.41 Family history of malignant neoplasm of ovary; Z80.0 Family history of malignant neoplasm of digestive organs
CPT/HCPCS: 77063; 77067

== ENCOUNTER 2024-09-09 10:51 | Outpatient (OUT) | payer BC, SELFPAY ==
--- OUTSIDE RECORDS SUMMARY | 2024-09-09 10:57 | XMS_ITS | Encounter Summary ---
Author Organization [employer] Address [facility] [id number] [address] [place] [address] Care Team Providers Care Cutter Wet Machine Name Role Phone Yosi Lan MD Primary Care Provider [phone] Reason for Visit * Reason Comments Med Refill Encounter Details Date Type Department Care Team (Late st Contact Info) Description 10/22/2023 Refill [facility] Internal Medicine/Pediatrics [address] [place] [address] 1 [place] [phone] Yosi Lan MD [address] [place] [address], 1 [place], [place] [id number] Coronary artery disease involving kasaan coronary artery of kasaan heart without angina pectoris; Essential hypertension; Palpitations; [...] often do you attend chur ch or anglican services? More than 4 times per year 05/04/2021 Do you belong to any clubs o r organizations such as adventist groups, unions, fraternal or athletic groups, or [...] Answer Date Recorded Total Score 0 06/03/2023 [facility] Occupat ional [facility] - Occupational Stress Questionnaire Answer Date [...] Recorded Do you need help finding a [facility] career center and/or a training program? [...] Visit Diagnoses Diagnosis Coronary artery disease involving kasaan coronary artery of kasaan heart without angina pectoris Essential hypertension Unspecified essential hypertension Palpitations Pure hypercholesterolemia documented in this encounter Additional Health Concerns Assessment Noted Time PHQ-9 Depression Total Score: 0 06/03/19 24 9:08 AM EDT documented as of this encounter Care Teams Cutter Wet Machine Relationship Specialty Start Date End Date Yosi Lan MD [address] [place] [address], [place] [address] PCP - General Pediatrics 12/30/16 documented as of this encounter
--- OUTSIDE RECORDS SUMMARY | 2024-09-09 10:57 | XMS_ITS | Encounter Summary ---
Author Organization [employer] Address [facility] [id number] [address] [place] [address] Care Team Providers Care Senior Associate Name Role Phone Yosi Lan MD Primary Care Provider [phone] Reason for Visit * Reason Comments Med Refill Encounter Details Date Type Department Care Team (Late st Contact Info) Description 03/07/2022 Refill [facility] Internal Medicine/Pediatrics [address] [place] [address] 1 [place] [phone] Yosi Lan MD [address] [place] [address], [address] [place], [place] [phone] Social History Tobacco Use Types Packs/Day Years [...] often do you attend chur ch or gnosticism services? More than 4 times per year 05/04/2021 Do you belong to any clubs o r organizations such as mormonism groups, unions, fraternal or athletic groups, or [...] Answer Date Recorded Total Score 5 05/04/2021 [facility] of Occupat ional Health - Occupational [...] documented as of this encounter Care Teams Senior Associate Relationship Specialty Start Date End Date Yosi Lan MD [address] [place] [address], 1 [place] [address] PCP - General Pediatrics 12/30/16 documented as of this encounter
--- OUTSIDE RECORDS SUMMARY | 2024-09-09 10:57 | XMS_ITS | Encounter Summary ---
Author Organization [employer] Address [facility] [id number] [address] [place] [address] Care Team Providers Care Reservation Agent Name Role Phone Yosi Lan MD Primary Care Provider [phone] Reason for Visit * Reason Comments Med Refill Encounter Details Date Type Department Care Team (Late st Contact Info) Description 04/08/2022 Refill [facility] Internal Medicine/Pediatrics [address] [place] [address] 1 [place] [phone] Yosi Lan MD [address] [place] [address], [address] [place], [place] [phone] Social History Tobacco Use Types Packs/Day Years [...] often do you attend chur ch or yazdanism services? More than 4 times per year 05/04/2021 Do you belong to any clubs o r organizations such as anglican groups, unions, fraternal or athletic groups, or [...] Answer Date Recorded Total Score 5 05/04/2021 [facility] of Occupat ional Health - [...] documented as of this encounter Care Teams Reservation Agent Relationship Specialty Start Date End Date Yosi Lan MD [address] [place] [address], 1 [place] [address] PCP - General Pediatrics 12/30/16 documented as of this encounter
--- OUTSIDE RECORDS SUMMARY | 2024-09-09 10:57 | XMS_ITS | Encounter Summary ---
Author Organization [employer] Sys tem Address [facility] [place]-[id number] [address] [place] [address] Care Team Providers Care Outside Collector Name Role Phone Yosi Lan MD Primary Care Provider [phone] Reason for Visit * Reason Comments Med Refill Encounter Details Date Type Department Care Team (Late st Contact Info) Description 11/15/2023 Refill [facility] Internal Medicine/Pediatrics [address] [place] [address] 1 [place] [phone] Yosi Lan MD [address] [place] [address], 1 [place], [place] [phone] Coronary artery disease involving paimiut coronary artery of paimiut heart without angina pectoris; Essential hypertension; Palpitations; [...] often do you attend chur ch or episcopalian services? More than 4 times per year 05/04/2021 Do you belong to any clubs o r organizations such as zoroastrian groups, unions, fraternal or athletic groups, or [...] Answer Date Recorded Total Score 0 06/03/2023 [facility] of Occupat ional [facility] - Occupational Stress Questionnaire Answer Date [...] Recorded Do you need help finding a [facility] and/or a training [...] EDT This prescription is filled by her education dean documented in this encounter Plan of Treatment Not on file documented as of this encounter Visit Diagnoses Diagnosis Coronary artery disease involving paimiut coronary artery of paimiut heart without angina pectoris Essential hypertension Unspecified essential hypertension Palpitations Pure hypercholesterolemia documented in this encounter Additional Health Concerns Assessment Noted Time PHQ-9 Depression Total Score: 0 06/03/19 24 9:08 AM EDT documented as of this encounter Care Teams Outside Collector Relationship Specialty Start Date End Date Yosi Lan MD [address] [place] [address], 1 [place] [address] PCP - General Pediatrics 12/30/16 documented as of this encounter
--- OUTSIDE RECORDS SUMMARY | 2024-09-09 10:57 | XMS_ITS | Encounter Summary ---
Author Organization [employer] Address [id number] [address] [place] [address] Care Team Providers Care Mixer Operator Tablets Name Role Phone Yosi Lan MD Primary Care Provider [phone] Reason for Visit * Reason Comments Med Refill Encounter Details Date Type Department Care Team (Late st Contact Info) Description 04/28/2021 Refill [facility] Internal Medicine/Pediatrics [address] [place] [address] 1 [place] [phone] Yosi Lan MD [address] [place] [address], 1 [place], [place] [phone] Social History Tobacco Use Types Packs/Day Years [...] documented as of this encounter Care Teams Mixer Operator Tablets Relationship Specialty Start Date End Date Yosi Lan MD [address] [place] [address], 1 [place] [address] PCP - General Pediatrics 12/30/16 documented as of this encounter
--- OUTSIDE RECORDS SUMMARY | 2024-09-09 10:57 | XMS_ITS | Encounter Summary ---
Author Organization [facility] Address [facility] [id number] [address] [place] [address] Care Team Providers Care Asphalt Plant Laborer Name Role Phone Yosi Lan MD Primary Care Provider [phone] Reason for Visit * Reason Comments Med Refill Encounter Details Date Type Department Care Team (Late st Contact Info) Description 07/23/2024 Refill [facility] Cardiology [address] [place] [phone] Carolann Gonzalez, AMUSEMENT OR RECREATION CARD CHECKER-COURT ATTENDANT [address] [place] [address] Med Refill Social History Tobacco Use Types [...] any clubs o r organizations such as rastafarian groups, unions, fraternal or athletic groups, or [...] Answer Date Recorded Total Score 0 06/03/2023 [facility] of Occupat ional Health - [...] Recorded Do you need help finding a [facility] career [facility] and/or a training program? No [...] 3:34 AM EDT Will fill at 07/27/24 [facility] appt if appropriate. documented in this encounter Plan of Treatment Not on file documented as of this encounter Visit Diagnoses Diagnosis Palpitations Pure hypercholesterolemia Coronary artery disease involving grayling coronary artery of grayling heart without angina pectoris Essential hypertension Unspecified essential hypertension Hyperlipidemia, unspecified hyperlipidemia type documented in this encounter Additional Health Concerns Assessment Noted Time PHQ-9 Depression Total Score: 0 06/03/19 24 9:08 AM EDT documented as of this encounter Care Teams Asphalt Plant Laborer Relationship Specialty Start Date End Date Yosi Lan MD [address] [place] [address], 1 [place] [address] PCP - General Pediatrics 12/30/16 documented as of this encounter
--- OUTSIDE RECORDS SUMMARY | 2024-09-09 10:57 | XMS_ITS | Encounter Summary ---
Author Organization [employer] Address [facility] [id number] [address] [place] [address] Care Team Providers Care Sheet Mill Supervisor Name Role Phone Yosi Lan MD Primary Care Provider [phone] Reason for Visit * Reason Comments Med Refill Encounter Details Date Type Department Care Team (Late st Contact Info) Description 06/21/2022 Refill [facility] Internal Medicine/Pediatrics [address] [place] [address] 1 [place] [phone] Yosi Lan MD [address] [place] [address], [address] [place], [place] [phone] Social History Tobacco Use Types Packs/Day Years [...] often do you attend chur ch or confucianist services? More than 4 times per year [...] Answer Date Recorded Total Score 0 05/31/2022 [facility] of Occupat ional Health - Occupational Stress [...] Recorded Do you need help finding a [facility] career center and/or a training program? [...] documented as of this encounter Care Teams Sheet Mill Supervisor Relationship Specialty Start Date End Date Yosi Lan MD [address] [place] [address], 1 [place] [address] PCP - General Pediatrics 12/30/16 documented as of this encounter
--- OUTSIDE RECORDS SUMMARY | 2024-09-09 10:57 | XMS_ITS | Encounter Summary ---
Author Organization [employer] Address [facility] [id number] [address] [place] [address] Care Team Providers Care Ballistic Expert Name Role Phone Yosi Lan MD Primary Care Provider [phone] Reason for Visit * Reason Comments Med Refill Encounter Details Date Type Department Care Team (Late st Contact Info) Description 07/08/2022 Refill [facility] Internal Medicine/Pediatrics [address] [place] [address] 1 [place] [phone] Yosi Lan MD [address] [place] [address], [address] [place], [place] [phone] Social History Tobacco Use Types Packs/Day Years [...] often do you attend chur ch or anabaptism services? More than 4 times per year [...] Answer Date Recorded Total Score 0 05/31/2022 [facility] of Occupat ional Health - Occupational [...] Recorded Do you need help finding a [facility] career [facility] and/or a training [...] documented as of this encounter Care Teams Ballistic Expert Relationship Specialty Start Date End Date Yosi Lan MD [address] [place] [address], 1 [place] [address] PCP - General Pediatrics 12/30/16 documented as of this encounter
--- OUTSIDE RECORDS SUMMARY | 2024-09-09 10:57 | XMS_ITS | Clinical Summary ---
Author Organization [employer] Address [id number] [address] [place] [address] Care Team Providers Care Specialty Molder Name Role Phone Yosi Lan MD Primary Care Provider [phone] Allergies Active Allergy Reactions Criticality Noted Date Comments Codeine 04/02/2017 Penicillins 04/04/2017 Sulfa (Sulfonamide Antibiotics) 03/20 Tetracyclines 04/02/2017 Medications hnayu-vi-4-lqd-qys-ddvp basil-ast 1,[id number] mg capsule Take 1,000 mg by mouth once. Active cetirizine (ZyrTEC) 10 mg tablet Take 1 tablet (10 mg total) by mouth in the morning. Active ketotifen (ZADITOR) 0.025 % (0.035 %) ophthalmic solution Active glucosamine-chondroitin 500-400 mg tablet Take 1 tablet by mouth in the evening. Active cholecalciferol, vitamin D3, 2,000 units tablet 4130-1061 UNITS DAILY Active multivitamin capsule Take 1 capsule by mouth in the morning. ALIVE . Active ketotifen fumarate, bulk, 100 % powder 022 Active AMBULATORY COMPOUNDED MEDICATION Patient to take one tablet daily 90 tablet 3 023 Active levothyroxine (SYNTHROID, LEVOTHROID) 125 MCG tablet Take 1 tablet (125 mcg total) by mouth in the morning. 90 tablet 3 024 Active atorvastatin (LIPITOR) 40 mg tabletIndications:Hyper lipidemia, unspecified hyperlipidemia type TAKE 1 TABLET BY MOUTH EVERY MORNING 90 tablet 025 Active FLUoxetine (PROzac) 10 mg tablet Take 0.5 tablets (5 mg total) by mouth every morning. 135 tablet 025 Active nebivoloL (BYSTOLIC) 10 mg tablet Take 1 tablet (10 mg total) by mouth in the morning. 90 tablet 025 Active amLODIPine (NORVASC) 10 mg tabletIndications:Coron anna artery disease involving [place] coronary artery of [place] heart without angina pectoris,Essential hypertension,Palpitatio ns,Pure hypercholesterolemia TAKE 1 TABLET BY MOUTH EVERY MORNING 90 tablet 3 025 Active pantoprazole (PROTONIX) 20 mg EC tablet Take 1 tablet (20 mg total) by mouth every morning. 90 tablet 3 025 Active aspirin 81 mg chewable tabletIndications:Palpi tations,Pure hypercholesterolemia,Co ronary artery disease involving [place] coronary artery of [place] heart without angina pectoris,Essential hypertension Chew 1 tablet (81 mg total) and swallow in the morning. 90 tablet 3 025 Active montelukast (SINGULAIR) 10 mg tablet Take 1 tablet (10 mg total) by mouth nightly. 90 tablet 3 025 Active ticagrelor (BRILINTA) 60 mg tabletIndications:Palpi tations,Pure hypercholesterolemia,Co ronary artery disease involving [place] coronary artery of [place] heart without angina pectoris,Essential hypertension Take 1 tablet (60 mg total) by mouth every 12 (twelve) hours. 180 tablet 3 022 2021 Discontinued montelukast (SINGULAIR) 10 mg tablet take one tablet by mouth every night 90 tablet 3 024 2024 Discontinued pantoprazole (PROTONIX) 20 mg EC tablet take one tablet by mouth every day 90 tablet 3 024 2024 Discontinued aspirin 81 mg chewable tabletIndications:Palpi tations,Pure hypercholesterolemia,Co ronary artery disease involving [place] coronary artery of [place] heart without angina pectoris,Essential hypertension Chew 1 tablet (81 mg total) and swallow in the morning. 90 tablet 2 024 2024 Discontinued(R vin) Active Problems Problem Noted Date Diagnosed Date CAD (coronary artery disease) 07/17/2017 Pure hypercholesterolemia 04/29/2017 Essential hypertension 04/04/2017 Overview (04/04/2017): Added automatically from request for surgery [id number] Hypothyroidism Mastocytosis Depression Encounters Date Type Department Care Team Description 09/08/2024 Refill [facility] [address] [place] [address] Krystina Caruso DOG BEAUTICIAN-SALVAGE WINDER Med Refill 09/01/2024 Refill [facility] Medicine/Pediatrics [address] [place] [address] Yosi Lan MD 08/31/2024 Refill [facility] [address] [place] [address] Carolann Gonzalez DOG BEAUTICIAN-SALVAGE WINDER Med Refill 08/24/2024 Refill [facility] [address] [place] [address] Yosi Lan MD 08/13/2024 Orders Only [facility] [address] [place] [address] Elissa Snyder RMA Encounter for screening mammogram for malignant neoplasm of breast 08/09/2024 3:45 PM EDT Office Visit [facility] [address] [place] [address] Yosi Lan MD Routine general medical examination at a health care facility (Primary Dx); Encounter for screening mammogram for malignant neoplasm of breast; Screening for colon cancer 08/09/2024 Travel 08/09/2024 Refill [facility] [address] [place] [address] Penny Iglesias PA-C Med Refill 07/29/2024 Orders Only [facility] [address] [place] [phone] Gabbie Arroyo CMA Hyperlipidemia, unspecified hyperlipidemia type 07/28/2024 2:45 PM EDT Office Visit [facility] [address] [place] [address] Nora Henderson PA-C Boumegouas, Manel, MD Palpitations (Primary Dx); Essential hypertension 07/28/2024 Travel 07/23/2024 Refill [facility] [address] [place] [address] Carolann Gonzalez DOG BEAUTICIAN-SALVAGE WINDER Med Refill 06/11/2024 Refill [facility] [address] [place] [address] Cherie Carr, DIANE Med Refill from Last 3 Months Immunizations Immunization Administration Dates Next Due COVID-19, mRNA, LNP-S, PF, 100mcg/0.5mL Dose 06/20/2020,05/23/2020 H1N1 Inj Preservative Free 12/30/2008 Influenza (IM) Preservative Free 12/19/2011 Influenza, Injectable, Mdck, Preservative Free, Quad 12/27/2022,12/07/2021 Influenza, Injectable, Quadrivalent 12/16/2013 Influenza, Injectable, quadr ivalent (PF) 11/10/2020,12/05/2019,11/29/2015,2014 Influenza, Unspecified 12/29/2018,12/03/2017, Zoster Vaccine Recombinant 02/22/2023,11/09/2022 Family History Medical History Relation Name Comments Alcohol abuse Father Juan gutiérrez Jr. liver cirrosis Cirrhosis Father Juan gutiérrez Jr. Heart attack Father Juan gutiérrez Jr. Breast cancer Half Sister Marta Diabetes Maternal Aunt Kallie YeboahNadya Barrow Heart disease Maternal Aunt Kallie YeboahNadya Barrow two valve re placements Mental illness Maternal Grandfather Missael Gu es ophageal cancer, pipe smoker Ovarian cancer Maternal Grandmother Rimma Gu d at age 74 from ovarian cancer Arthritis Mother Alis Mckee osteoarthrit is Heart attack Mother Alis Mckee Heart disease Mother Alis Mckee severe aort ic valve stenosis Hyperlipidemia Mother Alis Mckee Hypertension Mother Alis Mckee Stroke Mother Alis Mckee multiple TIA s Lung cancer Paternal Aunt Marita Rivera heavy smoke r Breast cancer Sister 1 Agustina Silvio Benz BRCA negati ve Heart attack Sister 1 Agustina Benz Mental illness Sister 1 Agustina Silvio Benz bipolar, b orderline schizophrenia Breast cancer Sister 2 Marta Mustafa 02/18 maternal s ister Drake Breast Cancer Neg Hx Relation Name Status Comments Father Juan Mckee Jr. Half Sister Marta Alive Maternal Aunt Kallie Hernándezhs Alive Maternal Grandfather Missael G. White Alive Maternal Grandmother Rimma Yeboah. White Mother Alis Mckee Alive Paternal Aunt Marita Winning Alive Sister 1 Agustina Benz Sister 2 Marta Mustafa Alive Social History Tobacco Use Types Packs/Day Years Used Date Smoking Tobacco: Never Smokeless Tobacco: Never Tobacco Cessation:Counseling Given: No Alcohol Use Standard Drinks/Week Comments No 0 [...] How often do you attend chur or jewish services? More than 4 times per year 05/04/2021 Do you belong to any clubs o r organizations such as mandaen groups, unions, fraternal or athletic groups, or [...] PHQ-2 Answer Date Recorded Total Score 0 08/09/2024 [facility] [place] of Occupat ional Health - Occupational Stress [...] Recorded Do you need help finding a [facility] career center and/or a training program? No 05/04/2021 Hunger Screening Answer Date Recorded Within the past 12 months we worried whether our food would run out before we got money to buy more. Never True 08/09/2024 Within the past 12 months th e food we bought just didn't last and we didn't have money to get more. Never True 08/09/2024 Purpose - Life Answer Date Recorded I [...] Orientation Straight 12/26/2020 2: 29 PM EST Last Filed Vital Signs Vital Sign Reading Time Taken Comments Blood Pressure 136/76 08/09/2024 3:32 PM EDT Pulse 53 08/09/2024 3:32 PM EDT Temperature 36.4 C (97.5 F) 08/09/2024 3:32 PM EDT Respiratory Rate 17 09/02/2021 6:34 PM EDT Oxygen Saturation 97% 08/09/2024 3:32 PM EDT Inhaled Oxygen Concentration - - Weight 74.5 kg (164 lb 3.2 oz) 08/09/2024 3:32 P M EDT Height 162.6 cm (5' 4 ) 08/09/2024 3:32 PM EDT Body Mass Index 28.18 08/09/2024 3:32 PM EDT Plan of Treatment Health Maintenance Due Date Last Done Comments Adult BMI Follow Up Plan 11/13/1979 DTaP,Tdap and Td Vaccines (1 - Tdap) 1980 Colon Cancer Screening 3 Christal Kasper 2006 Pap Smear 06/01/2023 05/31/2022, 05/03/2019 Influenza Vaccine 10/18/2024 12/28/2023, , 12/07/2021, Additional history exists Adult BMI Screening 08/09/2025 08/09/2024 Depression Screening 08/09/2025 08/09/2024 Tobacco Screening 08/09/2025 08/09/2024 Mammogram 08/12/2025 08/12/2024, 06/18, 07/04/2022, Additional history exists Zoster (Shingles) Vaccine Completed 02/22/2023, COVID-19 Vaccine Completed 12/28/2023, 11/2022, 02/14/2021, Additional history exists Medical Devices Implanted Type Area Machine Pecan Picker Device Identifier Shelf Expiration Date Model / Serial / Lot Stent Rx Vision Css 2.75x18 - [id number] Implanted:Qty : 1 on 04/10/2017 by Tylor Holman MD at [facility] Stent N/A: Heart Guidant [id number] 11/17/2019 [id number] / / [id number] Stent Mini Vision Rx 2.5 X 08 - [id number] Implanted:Qty : 1 on 04/10/2017 by Tylor Holman MD at [facility] Stent N/A: Heart Guidant [id number] 07/18/2019 [id number] / / [id number] Stent Mini Vision Rx 2.25 X 08 - [id number] Implanted:Qty : 1 on 04/10/2017 by Tylor Holman MD at [facility] Stent N/A: Heart Guidant [id number] 02/16/2018 [id number] / / [id number] Stent Rx Vision Css 2.75x8 - [id number] Implanted:Qty : 1 on 04/10/2017 by Tylor Holman MD at [facility] Stent N/A: Heart LOPEZ [id number] 09/16/2017 [id number] / / [id number] Procedures Procedure Name Priority Date/Time Associated Diagnosis Comments MAMM SCREENING BILATERAL W CAD Routine 08/12/2024 Encounter for screening mammogram for malignant neoplasm of breast LIPID PROFILE Routine 07/29/2024 Hyperlipidemia, unspecified hyperlipidemia type POCT EKG Routine 07/28/2024 Essential hypertension Palpitations PAP SMEAR Routine 05/31/2022 7:09 AM EDT Encounter for screening mammogram for malignant neoplasm of breast from Last 3 Months or Most Recently Relevant to Health Maintenance Results * Mammography screening bilateral with CAD (08/12/2024) Anatomical Region Laterality Modality Breast Bilateral Mammography 08/12/2024 us Yosi Lan MD IMG MAMMOGRAPHY ORDERABLES Fi nal Result * Lipid panel (07/29/2024) External Cholesterol 117 MANUALLY TRANSCRIBED RESULTS External Cholesterol:Hdl 2.9 MANUALLY TRANSCRIBED RESULTS External Hdl Cholesterol 40 MANUALLY TRANSCRIBED RESULTS External Ldl (Calc) 58.2 MANUALLY TRANSCRIBED RESULTS External Triglycerides 94 MANUALLY TRANSCRIBED RESULTS Vldl,Cholesterol 18.8 MAN UALLY TRANSCRIBED RESULTS Blood 07/29/2024 Carolann Gonzalez DOG BEAUTICIAN-SALVAGE WINDER LAB BLOOD ORDERABLES Final Result Performing Organization Address [facility] Co de Phone Number MANUALLY TRANSCRIBED RESULTS * POCT EKG (07/28/2024) 07/28/2024 Tiffanie Dooley MD ECG ORDERABLES Final Result Performing Organization Address [facility] de Phone Number MANUALLY TRANSCRIBED RESULTS * Pap Smear (05/31/2022 7:09 AM EDT) 05/31/2022 7:09 AM EDT 05/31/2022 7:09 AM EDT Narrative COPATH - 06/03/2022 12:13 PM EDT [facility] [address] [place] [address] Gynecologic Cytology Consultation Patient Name:MARIAELENA DELONG:1960 (Age: 61)Gender:FTaken:05/31/2022Reported:06/03/2022hysician(s):Yosi Lan MD ([phone])Copy To: Rec. #:[id number]: #[id number] Final Cytologic Interpretation ThinPrep Pap Test (Cervical): Satisfactory for evaluation. NEGATIVE FOR INTRAEPITHELIAL LESION OR MALIGNANCY. The cytologic changes of atrophy are noted. tm/06/03/2022 [place] [address], License number: [id number]. Electronically Signed Out By Jacki CAMPBELL(ASCP) Date of Last Menstrual Period: (None Given) Source of Specimen ThinPrep Pap Test (Cervical) Thin Prep Pap (ELDER COUNSELOR) Fee Code(s): G0145 Yosi Lan MD PATHOLOGY/CYTOLOGY ORDERABLES Final Result COPATH from Last 3 Months or Most Recently Relevant to Health Maintenance Insurance Care Teams Specialty Molder Relationship Specialty Start Date End Date Yosi Lan MD [address] [place] [address], [address] [place] [address] PCP - General Pediatrics 12/30/16
--- OUTSIDE RECORDS SUMMARY | 2024-09-09 10:57 | XMS_ITS | Clinical Summary ---
Author Organization [facility] Address [address] [place] [address] Care Team Providers Care Recycling Collections Driver Name Role Phone Unavailable Primary Care Provider Unavailabl e Social History Tobacco Use Types Packs/Day Years Used Date Smoking Tobacco: Never Assessed Comments Unknown Sex and Gender Information Value Date Recorded Sex Assigned at Not on file Legal Sex Female 9:50 AM EST Gender Identity Not on file Sexual Orientation Not on file Plan of Treatment Not on file Insurance [employer] PPO
--- OUTSIDE RECORDS SUMMARY | 2024-09-09 10:57 | XMS_ITS | Encounter Summary ---
Author Organization [employer] Address [id number] [address] [place] [address] Care Team Providers Care Federal Appellate Law Clerk Name Role Phone Yosi Lan MD Primary Care Provider [phone] Encounter Details Date Type Department Care Team (Late st Contact Info) Description 03/23/2019 Telephone [facility] [address] [place] [address] Gabbie Zavala MA Social History Tobacco Use [...] on filedocumented in this encounter Care Teams Federal Appellate Law Clerk Relationship Specialty Start Date End Date Yosi Lan MD [address] [place] [address], [address] [place] [id number] PCP - General Pediatrics 12/30/16 documented as of this encounter
--- OUTSIDE RECORDS SUMMARY | 2024-09-09 10:57 | XMS_ITS | Encounter Summary ---
Author Organization [facility] Address [address] [place], [place] [address] Care Team Providers Care Craft Coordinator Name Role Phone Unavailable Primary Care Provider Unavailabl e Source Comments In the event this information is protected by the Federal Confidentiality of Alcohol and Drug AbusePatient Records regulations: The Federal rules restrict any use of the information to criminally investigate or prosecute any alcohol or drug abuse patient.[facility] Encounter Details Date Type Department Care Team (Latest Contact Info) Description 01/22/2002 Prob Sum Review Provider, Mp Social History Tobacco Use Types Packs/Day Years Used Date Smoking Tobacco: Never Assessed Comments Unknown Sex and Gender Information Value Date Recorded Sex Assigned at Not on file Legal Sex Female 9:50 AM EST Gender Identity Not on file Sexual Orientation Not on file documented as of this encounter Plan of Treatment Not on file documented as of this encounter Visit Diagnoses Not on filedocumented in this encounter
--- OUTSIDE RECORDS SUMMARY | 2024-09-09 10:57 | XMS_ITS | Encounter Summary ---
Author Organization [employer] Address [id number] [address] [place] [address] Care Team Providers Care Certified Phlebotomy Technician Name Role Phone Yosi Lan MD Primary Care Provider [phone] Reason for Visit * Reason Comments Med Refill Encounter Details Date Type Department Care Team (Late st Contact Info) Description 12/09/2022 Refill [facility] [address] [place] [address] [address] [place] [address] Yosi Lan MD [address] [place] [address], [address] [place], [place] [id number] Social History Tobacco Use Types Packs/Day Years [...] often do you attend chur ch or mormonism services? More than 4 times per year 05/04/2021 Do you belong to any clubs o r organizations such as baptist groups, unions, fraternal or athletic groups, or [...] Date Recorded Total Score 0 05/31/2022 [facility] of Occupat ional Health - Occupational [...] documented as of this encounter Care Teams Certified Phlebotomy Technician Relationship Specialty Start Date End Date Yosi Lan MD [address] [place] [address], [address] [place] [address] PCP - General Pediatrics 12/30/16 documented as of this encounter
--- OUTSIDE RECORDS SUMMARY | 2024-09-09 10:57 | XMS_ITS | Encounter Summary ---
Author Organization [facility] Address [id number] [address] [place] [address] Care Team Providers Care Rate Analyst Name Role Phone Yosi Lan MD Primary Care Provider [phone] Reason for Visit * Reason Onset Date Comments Medication Problem 03/31/2020 Encounter Details Date Type Department Care Team (Late st Contact Info) Description 03/31/2020 Telephone [facility] [address] [place] [address] Jyothi Berrios CMA Medication Problem Social History [...] on filedocumented in this encounter Care Teams Rate Analyst Relationship Specialty Start Date End Date Yosi Lan MD [address] [place] [address], [address] [place] [address] PCP - General Pediatrics 12/30/16 documented as of this encounter
--- OUTSIDE RECORDS SUMMARY | 2024-09-09 10:57 | XMS_ITS | Encounter Summary ---
Author Organization [employer] Address [id number] [address] [place] [address] Care Team Providers Care Branch General Manager Name Role Phone Yosi Lan MD Primary Care Provider [phone] Reason for Visit * Reason Comments Med Refill Encounter Details Date Type Department Care Team (Late st Contact Info) Description 05/19/2022 Refill [facility] [address] [place] [address] [address] [place] [address] Yosi Lan MD [address] [place] [address], [address] [place], [place] [id number] Social History Tobacco Use Types Packs/Day Years [...] Answer Date Recorded Total Score 5 05/04/2021 [facility] Occupat ional Health - Occupational [...] documented as of this encounter Care Teams Branch General Manager Relationship Specialty Start Date End Date Yosi Lan MD [address] [place] [address], [address] [place] [address] PCP - General Pediatrics 12/30/16 documented as of this encounter
--- OUTSIDE RECORDS SUMMARY | 2024-09-09 10:57 | XMS_ITS | Encounter Summary ---
Author Organization [facility] Address [id number] [address] [place] [address] Care Team Providers Care Diesel Truck Mechanic Name Role Phone Yosi Lan MD Primary Care Provider [phone] Reason for Visit * Reason Onset Date Comments Med Refill 04/09/2021 Encounter Details Date Type Department Care Team (Late st Contact Info) Description 04/09/2021 Refill [facility] [address] [place] [address] Alejandra Pimentel RN Med Refill Social History [...] Visit Diagnoses Diagnosis Coronary artery disease involving [place] coronary artery of [place] heart without angina pectoris- Primary Encounter for therapeutic drug monitoring documented in this encounter Additional Health Concerns Assessment Noted Time PHQ-9 Depression Total Score: 1 05/04/19 21 8:47 AM EDT documented as of this encounter Care Teams Diesel Truck Mechanic Relationship Specialty Start Date End Date Yosi Lan MD [address] [place] [address], [address] [place] [address] PCP - General Pediatrics 12/30/16 documented as of this encounter
--- OUTSIDE RECORDS SUMMARY | 2024-09-09 10:58 | XMS_ITS | Encounter Summary ---
Author Organization [employer] Address [id number] [address] [place] [address] Care Team Providers Care Reimbursement Representative Name Role Phone Yosi Lan MD Primary Care Provider [phone] Encounter Details Date Type Department Care Team (Late st Contact Info) Description 07/29/2024 Orders Only [facility] [address] [place] [address] Gabbie Arroyo CMA Hyperlipidemia, unspecified hyperlipidemia type Social History Tobacco Use Types Packs/Day Years [...] often do you attend chur ch or islam services? More than 4 times per year [...] Recorded Do you need help finding a [facility] career [facility] and/or a training program? No [...] Procedure Name Priority Date/Time Associated Diagnosis Comments LIPID PROFILE Routine 07/29/2024 Hyperlipidemia, unspecified hyperlipidemia type documented in this encounter Results * Lipid panel (07/29/2024) External Cholesterol 117 MANUALLY TRANSCRIBED RESULTS External Cholesterol:Hdl 2.9 MANUALLY TRANSCRIBED RESULTS External Hdl Cholesterol 40 MANUALLY TRANSCRIBED RESULTS External Ldl (Calc) 58.2 MANUALLY TRANSCRIBED RESULTS External Triglycerides 94 MANUALLY TRANSCRIBED RESULTS Vldl,Cholesterol 18.8 MAN UALLY TRANSCRIBED RESULTS Blood 07/29/2024 Carolann Gonzalez BOW MAKER MACHINE TENDER-CHEST PAIN COORDINATOR LAB BLOOD ORDERABLES Final Result MANUALLY TRANSCRIBED RESULTS documented in this encounter Visit Diagnoses Diagnosis Hyperlipidemia, unspecified hyperlipidemia type documented in this encounter Additional Health Concerns Assessment Noted Time PHQ-9 Depression Total Score: 0 06/03/19 24 9:08 AM EDT documented as of this encounter Care Teams Reimbursement Representative Relationship Specialty Start Date End Date Yosi Lan MD [address] [place] [address], [address] [place] [address] PCP - General Pediatrics 12/30/16 documented as of this encounter
--- OUTSIDE RECORDS SUMMARY | 2024-09-09 10:58 | XMS_ITS | Encounter Summary ---
Author Organization [facility] Address [id number] [address] [place] [address] Care Team Providers Care Ax Survey Worker Name Role Phone Yosi Lan MD Primary Care Provider Reason for Visit * Reason Onset Date Comments Med Refill 02/24/2023 Encounter Details Date Type Department Care Team (Late st Contact Info) Description 02/24/2023 Refill [facility] [address] [place] [address] 1 [place] [phone] Yosi Lan MD [address] [place] [address], [address] [place], [place] [id number] Social History Tobacco Use Types Packs/Day Years [...] often do you attend chur ch or advent services? More than 4 times per year 05/04/2021 Do you belong to any clubs o r organizations such as denominational groups, unions, fraternal or athletic groups, or [...] Answer Date Recorded Total Score 0 05/31/2022 [facility] [place] of Occupat ional Health - Occupational Stress [...] Recorded Do you need help finding a [facility] and/or a training [...] documented as of this encounter Care Teams Ax Survey Worker Relationship Specialty Start Date End Date Yosi Lan MD [address] [place] [address], [address] [place] [address] PCP - General Pediatrics 12/30/16 documented as of this encounter
--- OUTSIDE RECORDS SUMMARY | 2024-09-09 10:58 | XMS_ITS | Encounter Summary ---
Author Organization [facility] Address [facility] [id number] [address] [place] [address] Care Team Providers Care Printer Operator Name Role Phone Yosi Lan MD Primary Care Provider [phone] Encounter Details Date Type Department Care Team (Late st Contact Info) Description 06/04/2023 Orders Only [facility] Internal Medicine/Pediatrics [address] [place] [phone] Elissa Snyder RMA Routine general medical examination [...] often do you attend chur ch or roman catholic services? More than 4 times per year [...] Answer Date Recorded Total Score 0 06/03/2023 [facility] [place] of Occupat ional Health - Occupational Stress [...] Routine general medical examination at a [facility] care facility LIPID PROFILE Routine 06/03/2023 Routine general medical examination at a [facility] facility COMPREHENSIVE METABOLIC PANEL Routine 06/03/2023 Routine general medical examination at a [facility] facility documented in this encounter Results * Comprehensive metabolic panel (06/03/2023) Blood 06/03/2023 us Yosi Lan MD LAB BLOOD ORDERABLES Final Re sult Performing Organization Address City/[facility]/ZIP Co de Phone Number SUNQUEST * (ABNORMAL) [...] documented as of this encounter Care Teams Printer Operator Relationship Specialty Start Date End Date Yosi Lan MD [address] [place] [address], 1 [place] [address] PCP - General Pediatrics 12/30/16 documented as of this encounter
--- OUTSIDE RECORDS SUMMARY | 2024-09-09 10:58 | XMS_ITS | Encounter Summary ---
Author Organization [facility] tem Address [facility] [id number] [address] [place] [address] Care Team Providers Care Facilities Flight Check Pilot Name Role Phone Yosi Lan MD Primary Care Provider [phone] Reason for Visit * Reason Onset Date Comments Med Refill 08/31/2024 Encounter Details Date Type Department Care Team (Late st Contact Info) Description 08/31/2024 Refill [facility] Cardiology [address] [place] [phone] Carolann Gonzalez, JACK-DIRECTOR OF SEARCH ENGINE MARKETING [address] [place] [address] Med Refill Social History Tobacco Use Types [...] often do you attend chur ch or zoroastrian services? More than 4 times per year 05/04/2021 Do you belong to any clubs o r organizations such as pentecostalism groups, unions, fraternal or athletic groups, or [...] Answer Date Recorded Total Score 0 08/09/2024 [facility] [place] of Occupat ional Health - Occupational Stress [...] Recorded Do you need help finding a [facility] and/or a training [...] encounter Miscellaneous Notes * Telephone Encounter - Sirena Solorio RN - 08/31/2024 6:55 AM EDT Last OV 07/28/24 documented in this encounter Plan of Treatment Not on file documented as of this encounter Visit Diagnoses Diagnosis Palpitations Pure hypercholesterolemia Coronary artery disease involving [place] coronary artery of [place] heart without angina pectoris Essential hypertension Unspecified essential hypertension documented in this encounter Additional Health Concerns Assessment Noted Time PHQ-9 Depression Total Score: 0 08/10/19 25 3:32 PM EDT documented as of this encounter Care Teams Facilities Flight Check Pilot Relationship Specialty Start Date End Date Yosi Lan MD [address] [place] [address], 1 [place] [address] PCP - General Pediatrics 12/30/16 documented as of this encounter
--- OUTSIDE RECORDS SUMMARY | 2024-09-09 10:58 | XMS_ITS | Encounter Summary ---
Author Organization [facility] tem Address [facility] [id number] [address] [facility] [place] [address] Care Team Providers Care Maintenance Department Manager Name Role Phone Yosi Lan MD Primary Care Provider [phone] Reason for Visit * Reason Comments Med Refill Encounter Details Date Type Department Care Team (Late st Contact Info) Description 03/19/2023 Refill [facility] Cardiology [address] [place] [phone] Carly Arce, BODY TEAM MEMBER-CAR RIDER [address] [place] [address] Med Refill Social History Tobacco [...] any clubs o r organizations such as muslim groups, unions, fraternal or athletic groups, or [...] Answer Date Recorded Total Score 0 05/31/2022 [facility] of Occupat ional Health - Occupational [...] Recorded Do you need help finding a [facility] and/or a training [...] documented as of this encounter Care Teams Maintenance Department Manager Relationship Specialty Start Date End Date Yosi Lan MD [address] [place] [address], [address] [place] [address] PCP - General Pediatrics 12/30/16 documented as of this encounter
--- OUTSIDE RECORDS SUMMARY | 2024-09-09 10:58 | XMS_ITS | Encounter Summary ---
Author Organization [facility] tem Address [facility] [id number] [address] [place] [address] Care Team Providers Care Cook Helper Pastry Name Role Phone Yosi Lan MD Primary Care Provider [phone] Encounter Details Date Type Department Care Team (Late st Contact Info) Description 08/13/2024 Orders Only [facility] Internal Medicine/Pediatrics [address] [place] [phone] Elissa Snyder RMA Encounter for screening mammogram for malignant neoplasm of breast Social History Tobacco Use Types Packs/Day Years [...] any clubs o r organizations such as episcopalian groups, unions, fraternal or athletic groups, or [...] Answer Date Recorded Total Score 0 08/09/2024 [facility] [place] of Occupat ional Health - Occupational Stress [...] Recorded Do you need help finding a [facility] and/or a training program? [...] screening mammogram for malignant neoplasm of breast documented in this encounter Results * Mammography screening bilateral with CAD (08/12/2024) Anatomical Region Laterality Modality Breast Bilateral Mammography 08/12/2024 us Yosi Lan MD IMG MAMMOGRAPHY ORDERABLES Fi nal Result documented in this encounter Visit Diagnoses Diagnosis Encounter for screening mammogram for malignant neoplasm of breast documented in this encounter Additional Health Concerns Assessment Noted Time PHQ-9 Depression Total Score: 0 08/10/19 25 3:32 PM EDT documented as of this encounter Care Teams Cook Helper Pastry Relationship Specialty Start Date End Date Yosi Lan MD [address] [place] [address], [address] [place] [address] PCP - General Pediatrics 12/30/16 documented as of this encounter
--- OUTSIDE RECORDS SUMMARY | 2024-09-09 10:58 | XMS_ITS | Encounter Summary ---
Author Organization [facility] Address [facility] [place][id number] [address] [place] [address] Care Team Providers Care Inspector Balance Bridge Name Role Phone Yosi Lan MD Primary Care Provider [phone] Reason for Visit * Reason Comments Med Refill Encounter Details Date Type Department Care Team (Late st Contact Info) Description 09/08/2024 Refill [facility] Cardiology [address] [place] [phone] Krystina Caruso, GPS FIELD DATA COLLECTOR-RESTAURANT GENERAL MANAGER [address] [place] [address] Med Refill Social History Tobacco Use Types [...] often do you attend chur ch or rastafarian services? More than 4 times per year 05/04/2021 Do you belong to any clubs o r organizations such as gnosticist groups, unions, fraternal or athletic groups, or [...] Answer Date Recorded Total Score 0 08/09/2024 [facility] of Occupat ional Health - Occupational [...] Recorded Do you need help finding a [facility] and/or a training program? [...] documented as of this encounter Care Teams Inspector Balance Bridge Relationship Specialty Start Date End Date Yosi Lan MD [address] [place] [address], [address] [place] [address] PCP - General Pediatrics 12/30/16 documented as of this encounter
--- OUTSIDE RECORDS SUMMARY | 2024-09-09 10:58 | XMS_ITS | Encounter Summary ---
Author Organization [facility] Address [facility] [id number] [address] [place] [address] Care Team Providers Care Ct Technician Name Role Phone Yosi Lan MD Primary Care Provider [phone] Reason for Visit * Reason Comments Med Refill Encounter Details Date Type Department Care Team (Late st Contact Info) Description 09/01/2024 Refill [facility] Internal Medicine/Pediatrics [address] [place] [address] 1 [place] [phone] Yosi Lan MD [address] [place] [address], [address] [place], [place] [id number] Social History Tobacco Use Types Packs/Day Years [...] often do you attend chur ch or jewish services? More than 4 times per year 05/04/2021 Do you belong to any clubs o r organizations such as religious groups, unions, fraternal or athletic groups, or [...] Answer Date Recorded Total Score 0 08/09/2024 [facility] of Occupat ional Health - [...] Recorded Do you need help finding a [facility] and/or a training program? [...] encounter Miscellaneous Notes * Telephone Encounter - JESSY Babb - 09/01/2024 3:32 AM EDT Refill request. documented in this encounter Plan of Treatment Not on file documented as of this encounter Visit Diagnoses Not on filedocumented in this encounter Additional Health Concerns Assessment Noted Time PHQ-9 Depression Total Score: 0 08/10/19 25 3:32 PM EDT documented as of this encounter Care Teams Ct Technician Relationship Specialty Start Date End Date Yosi Lan MD [address] [place] [address], [address] [place] [address] PCP - General Pediatrics 12/30/16 documented as of this encounter
--- OUTSIDE RECORDS SUMMARY | 2024-09-09 10:58 | XMS_ITS | Encounter Summary ---
Author Organization [employer] [facility] Address [facility] [id number] [address] [place] [address] Care Team Providers Care Copyright Expert Name Role Phone Yosi Lan MD Primary Care Provider [phone] Reason for Visit * Reason Comments Med Refill Encounter Details Date Type Department Care Team (Late st Contact Info) Description 10/21/2023 Refill [facility] Internal Medicine/Pediatrics [address] [place] [address] 1 [place] [phone] Yosi Lan MD [address] [place] [address], [address] [place], [place] [id number] Coronary artery disease involving [place] coronary artery of [place] heart without angina pectoris; Essential hypertension; Palpitations; [...] often do you attend chur ch or sikhism services? More than 4 times per year 05/04/2021 Do you belong to any clubs o r organizations such as buddhism groups, unions, fraternal or athletic groups, or [...] Answer Date Recorded Total Score 0 06/03/2023 [facility] of Occupat ional [facility] - Occupational Stress Questionnaire Answer Date [...] EDT This medication is filled by her Sales And Marketing Executive documented in this encounter Plan of Treatment Not on file documented as of this encounter Visit Diagnoses Diagnosis Coronary artery disease involving [place] coronary artery of [place] heart without angina pectoris Essential hypertension Unspecified essential hypertension Palpitations Pure hypercholesterolemia documented in this encounter Additional Health Concerns Assessment Noted Time PHQ-9 Depression Total Score: 0 06/03/19 24 9:08 AM EDT documented as of this encounter Care Teams Copyright Expert Relationship Specialty Start Date End Date Yosi Lan MD [address] [place] [address], 1 [place] [address] PCP - General Pediatrics 12/30/16 documented as of this encounter
== END 2024-09-09 10:52 | disposition home or self-care (01) ==
LOC: PST 10:51
PROVIDERS: PCP Internal Medicine; Visit Provider Surgery
DX: Z01.818 Encounter for other preprocedural examination (principal); Z12.11 Encounter for screening for malignant neoplasm of colon

== ENCOUNTER 2024-09-15 07:29 | Day surgery (SDC) | payer BC, SELFPAY ==
--- NOTE | 2024-09-15 | OP_ITS ---
OPERATION DATE: 09/15/2024 PREOPERATIVE DIAGNOSIS: Colorectal screening. POSTOPERATIVE DIAGNOSIS: Normal colonoscopy to cecum. PROCEDURE: Colonoscopy to cecum. SURGEON: Chad Carroll M.D. ANESTHESIA: Monitored anesthesia care. ESTIMATED BLOOD LOSS: Zero. INDICATIONS AND CONSENT: Patient is a 63-year-old female presents for colorectal screening. Indications, risks, benefits, alternatives of proceeding with colonoscopy were explained extensively to the patient, including the risks of bleeding, colon perforation or anesthetic complications. All of her questions were answered. Informed consent was obtained. PROCEDURE: Patient brought to the operating room, placed in the left lateral decubitus position. Monitored anesthesia care was provided. Rectal exam was performed which showed no masses or blood. The scope was inserted into the anal canal. Under direct visualization was advanced. It was advanced to the cecum where cecal markings were clearly identified. There was noted to be a good prep. Upon withdrawal of the scope, mucosal surfaces were carefully examined. There were no mass lesions or polyps. No inflammatory changes or ulcerations. No significant diverticulosis. The scope was retroflexed in the anal canal. There was no significant hemorrhoidal disease. Scope was then withdrawn. Patient tolerated procedure well, was sent to recovery room in good condition. follow up screening colonoscopy in 10 years CC: Yosi Lan M.D. MTDBettie
[2024-09-15 08:06] VITALS: BP 161/79; PULSE 62; TEMP 36.1; O2SAT 96; BMI 27.3
[2024-09-15] MEDS: 0.9 % SODIUM CHLORIDE 500 ML 50 ML IV ×2 (08:06→09:49)
[2024-09-15] MEDS: DIPHENHYDRAMINE HCL 25 MG CAPSULE PO (08:08)
[2024-09-15] MEDS: FAMOTIDINE/PF 20 MG/2 ML VIAL IV (08:08)
[2024-09-15 10:35] VITALS: BP 112/64; PULSE 60; O2SAT 94
[2024-09-15 10:51] VITALS: BP 125/70; PULSE 57; O2SAT 97
== END 2024-09-15 11:20 | disposition home or self-care (01) ==
LOC: SURGOUT 07:31
PROVIDERS: PCP Internal Medicine; Visit Provider Surgery
PROC: (CPT 00812; principal; 2024-09-15 09:35)
DX: Z12.11 Encounter for screening for malignant neoplasm of colon (principal); I25.10 Atherosclerotic heart disease of native coronary artery without angina pectoris; I10 Essential (primary) hypertension; E03.9 Hypothyroidism, unspecified; E78.00 Pure hypercholesterolemia, unspecified; K21.9 Gastro-esophageal reflux disease without esophagitis; Z79.82 Long term (current) use of aspirin; Z95.5 Presence of coronary angioplasty implant and graft; F41.9 Anxiety disorder, unspecified; F32.9 Major depressive disorder, single episode, unspecified
CPT/HCPCS: 00812; 45378; J2371; J2704; J3490